=== PATIENT | female | born 1995 | race Caucasian/White ===

== ENCOUNTER 2018-09-28 21:21 | Emergency (ER) | payer OTHER ==
[~2018-09-28] VITALS: Ht 157.5 cm; Wt 70.5 kg
[2018-09-28] MEDS ORDERED: birth control PO (21:26)
[2018-09-28] MEDS ORDERED: predniSONE 20 MG TAB PO ONE (23:00)
[2018-09-28] MEDS ORDERED: FAMOTIDINE 20 MG TAB PO ONE (23:00)
[2018-09-28] MEDS ORDERED: BENA25CA4 PO ×2 (23:06→23:09)
[2018-09-28] MEDS ORDERED: PRED20TA PO ×2 (23:06→23:09)
[2018-09-28 23:12] VITALS: BP 109/72
== END 2018-09-28 23:15 | disposition home or self-care (01) ==
LOC: M ED 21:21
DX: L50.0 Allergic urticaria (principal); Z79.3 Long term (current) use of hormonal contraceptives; F17.210 Nicotine dependence, cigarettes, uncomplicated